=== PATIENT | female | born 1985 | race Caucasian/White ===

== ENCOUNTER 2019-10-31 11:43 | Emergency (ER) | payer OTHER, SELFPAY ==
[2019-10-31 11:46] VITALS: BP 137/86; PULSE 81; RESP 16; TEMP 36.2; O2SAT 100; BMI 36.1
--- NOTE | 2019-10-31 11:57 | DI.CT.S_ITS ---
PROCEDURE: CT HEAD/BRAIN WO CON INDICATIONS: fall off running horse, poss brief LOC TECHNIQUE: Noncontrast 4.5 mm thick angled axial sections acquired from the foramen magnum to the vertex, with coronal and sagittal reformats. For radiation dose reduction, the following was used: automated exposure control, adjustment of mA and/or kV according to patient size. COMPARISON: None. FINDINGS: Image quality: Excellent. CSF spaces: Basal cisterns are patent. No extra-axial fluid collections. Ventricles are normal in size and shape. Mild thickening of the anterior midline falx is identified. Brain: No midline shift. No intracranial masses or hemorrhage. Alcantar-white matter interface is normal. Skull and face: Calvarium and visualized facial bones are intact, without suspicious lesions. Sinuses: Visualized sinuses and mastoids are clear. IMPRESSION: No definitive acute intracranial hemorrhage is identified. Thickening of the anterior midline falx may be a congenital variant. The possibility of a small subdural hematoma along the anterior midline falx cannot be excluded. The need for follow up imaging should be based on clinical grounds. Dictated by: Curry Talbert M.D. on 10/31/2019 at 11:56 Approved by: Curry Talbert M.D. on 10/31/2019 at 11:58
--- NOTE | 2019-10-31 11:57 | DI.CT.S_ITS ---
PROCEDURE: CT CERVICAL SPINE WO CON INDICATIONS: fall off running horse, poss brief LOC TECHNIQUE: Noncontrast 3 mm thick sections acquired from the skull base to the T4 level. Sagittal and coronal reformats were then constructed. For radiation dose reduction, the following was used: automated exposure control, adjustment of mA and/or kV according to patient size. COMPARISON: None. FINDINGS: Image quality: Diagnostic. Bones: The craniocervical and atlantoaxial joints are well-maintained. The odontoid is intact. The vertebral body heights and prevertebral soft tissues are within normal limits throughout the cervical spine without evidence to suggest acute compression fracture. No other fractures are evident within the cervical spine. The bone mineralization is within normal limits. Mild degenerative changes of the cervical spine are evident. There is mild reversal of the normal cervical lordosis. No spondylolisthesis is identified. Soft tissues: No prevertebral soft tissue swelling. The imaged lung apices are clear. Imaged portions of the mediastinum are unremarkable. Otherwise, the remainder of the imaged soft tissues of the neck are within normal limits. IMPRESSION: 1. No acute fracture of the cervical spine. 2. Mild degenerative changes of the cervical spine. 3. Mild reversal of normal cervical lordosis probably is related to muscle spasm. Dictated by: Curry Talbert M.D. on 10/31/2019 at 11:52 Approved by: Curry Talbert M.D. on 10/31/2019 at 11:55
--- NOTE | 2019-10-31 11:57 | DI.RAD.S_ITS ---
PROCEDURE: XR THORACIC SPINE 3V INDICATIONS: fall off running horse, poss brief LOC TECHNIQUE: 3 views of the thoracic spine were acquired. COMPARISON: None. FINDINGS: Bones: On the lateral views, the cervicothoracic junction is not adequately identified. On the lateral view, the thoracic spine is only adequately visualized to approximately the T4 level. The swimmer's view is essentially nondiagnostic. However, this portion of the upper thoracic spine wasn't well-visualized on the CT of the cervical spine without an associated fracture within this region. 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 The vertebral body heights are within normal limits throughout the thoracic spine without evidence to suggest acute compression fracture. The bone mineralization is within normal limits. Mild degenerative changes of the thoracic spine are evident. Soft tissues: The imaged overlying soft tissues of the chest are within normal limits. IMPRESSION: 1. No acute fracture of the thoracic spine. 2. Mild degenerative changes of the lower thoracic spine. Dictated by: Curry Talbert M.D. on 10/31/2019 at 12:05 Approved by: Curry Talbert M.D. on 10/31/2019 at 12:07
--- NOTE | 2019-10-31 11:57 | DI.RAD.S_ITS ---
PROCEDURE: XR RIBS BI MIN 4V W CXR1V INDICATIONS: fall off running horse, left rib/chest pain TECHNIQUE: 2 views of the right RIBS, 2 views of the left ribs, and a single frontal view of the chest was obtained. COMPARISON: None. FINDINGS: Surgical changes and devices: No acute osseous abnormality of the Bones and chest wall: No fractures or dislocations. No suspicious bony lesions. Overlying soft tissues appear unremarkable. Lungs and pleura: No pleural effusions or pneumothorax. Lungs appear clear. Mediastinum: Mediastinal contours appear normal. Heart size is normal. IMPRESSION: No displaced rib fractures. Dictated by: Curry Talbert M.D. on 10/31/2019 at 12:08 Approved by: Curry Talbert M.D. on 10/31/2019 at 12:09
--- NOTE | 2019-10-31 12:09 | DI.RAD.S_ITS ---
PROCEDURE: XR HAND RT MIN 3V INDICATIONS: fall off running horse, c/o R 5th finger pain TECHNIQUE: 3 00 views of the hand(s) acquired. COMPARISON: None. FINDINGS: Bones: No fractures or dislocations. Carpal bones are normally aligned. No suspicious bony lesions. Soft tissues: No suspicious soft tissue calcifications. IMPRESSION: No acute osseous abnormality of the right hand. Dictated by: Curry Talbert M.D. on 10/31/2019 at 12:34 Approved by: Curry Talbert M.D. on 10/31/2019 at 12:35
[2019-10-31 12:17] LABS: Add Manual Diff / Slide Review NO; Basophils Absolute Auto 0 /uL (0-100); Basophils Percent Auto 0.3 % (0-2); Eosinophils Absolute Auto 0 /uL (0-450); Eosinophils Percent Auto 0.4 % (2-4); Hematocrit 40.4 % (36-46); Hemoglobin 13.1 g/dL (12.0-16.0); Lymphocytes Absolute Auto 1400 /uL (1100-4500); Lymphocytes Percent Auto 13.7 % (25-40); Mean Corpuscular HGB Conc 32.3 % (30-36); Mean Corpuscular Hemoglobin 24.9 PG (26-34); Monocytes Absolute Auto 600 /uL (0-900); Monocytes Percent Auto 5.5 % (3-14); Neutrophils Absolute Auto 8400 /uL (1500-7000); Neutrophils Percent Auto 80.1 % (50-75); Platelet Count 209 X10^3/uL (150-400); Red Blood Cell Count 5.25 X10^6/uL (4.0-5.2); Red Cell Distribution Width 17.4 % (11.6-14.8); White Blood Cell Count 10.5 X10^3/uL (4.5-11.0)
[2019-10-31 12:27] LABS: Alanine Aminotransferase 15 IU/L (<35); Albumin 4.6 g/dL (3.5-5.0); Albumin Globulin Ratio 1.4 (1.0-2.8); Alkaline Phosphatase 89 U/L (38-126); Aspartate Aminotransferase 25 IU/L (14-36); BUN Creatinine Ratio 16.8 (6-22); Bilirubin Total 0.6 mg/dL (0.2-1.3); Blood Urea Nitrogen 17 mg/dL (7-17); Calcium 9.6 mg/dL (8.4-10.2); Carbon Dioxide 22 mmol/L (22-32); Chloride 108 mmol/L (98-107); Estimated Glomerular Filt Rate > 60.0 mL/min (>60); Globulin 3.4 g/dL (1.7-4.1); Glucose 98 mg/dL (70-100); HEMOLYSIS < 15 (0-50); Sodium 139 mmol/L (137-145)
[2019-10-31 13:16] VITALS: BP 115/62; PULSE 73; O2SAT 100
[2019-10-31] MEDS: ACETAMINOPHEN 325 MG TABLET 650 MG PO (13:59)
[2019-10-31 15:23] VITALS: BP 122/77; PULSE 83; O2SAT 100
[2019-10-31] MEDS: LIDOCAINE PATCH 1 EACH ADH..PATCH TOP (15:45)
[2019-10-31] MEDS: MORPHINE 4 MG/ML INJ IV (15:45)
[2019-10-31] MEDS: CYCLOBENZAPRINE 10 MG TABLET PO (15:46)
--- NOTE | 2019-10-31 16:33 | DI.RAD.S_ITS ---
PROCEDURE: XR SHOULDER LT MIN 2V INDICATIONS: fell off a horse and landed on left shoulder, pain TECHNIQUE: 3 views of the shoulder were acquired. COMPARISON: None. FINDINGS: Bones: No fractures or dislocations. No suspicious bony lesions. Visualized ribs appear intact. Soft tissues: No suspicious soft tissue calcifications. IMPRESSION: 1. No fracture or subluxation. Dictated by: Carlos Gant M.D. on 10/31/2019 at 18:22 Approved by: Carlos Gant M.D. on 10/31/2019 at 18:24
[2019-10-31 17:02] VITALS: BP 116/60; PULSE 67; O2SAT 100
[2019-10-31 17:50] VITALS: BP 114/62; PULSE 65; O2SAT 100
--- NOTE | 2019-10-31 17:55 | DI.CT.S_ITS ---
PROCEDURE: CT HEAD/BRAIN WO CON INDICATIONS: repeat head CT, initial reading possible small subdural hematoma status post trauma TECHNIQUE: Noncontrast 4.5 mm thick angled axial sections acquired from the foramen magnum to the vertex, with coronal and sagittal reformats. For radiation dose reduction, the following was used: automated exposure control, adjustment of mA and/or kV according to patient size. COMPARISON: [facility], CT, CT HEAD/BRAIN WO CON, 10/31/2019, 12:18. FINDINGS: Image quality: Excellent. CSF spaces: Basal cisterns are patent. No extra-axial fluid collections. The falx appears unchanged. Ventricles are normal in size and shape. Brain: No intracranial hemorrhage, mass, or mass effect. Alcantar-white matter interface is preserved. Skull and face: Calvarium and visualized facial bones are intact, without suspicious lesions. Sinuses: Visualized sinuses and mastoids are clear. IMPRESSION: 1. No acute intracranial abnormality. Dictated by: Carlos Gant M.D. on 10/31/2019 at 18:17 Approved by: Carlos Gant M.D. on 10/31/2019 at 18:21
[2019-10-31 18:34] LABS: Hematocrit 39.3 % (36-46)
[2019-10-31] MEDS: KETOROLAC 60 MG/2 ML VIAL 30 MG IV (19:41)
[2019-10-31] MEDS: CYCLOBENZAPRINE 10 MG PREPACK 1 BOTTLE MISC (19:42)
[2019-10-31] MEDS: HYDROCODONE/ACET 5/325 PREPACK 1 BOTTLE MISC (19:42)
[2019-10-31 19:47] VITALS: BP 129/75; PULSE 74; RESP 18; O2SAT 100
--- NOTE | 2019-10-31 22:10 | ED.TRAUMA ---
HPI - Trauma <PILAR Pimentel - Last Filed: 11/01/19 01:21> General Chief Complaint: Trauma Stated Complaint: fell off horse, rt shoulder pain Time Seen by Provider: 10/31/19 11:50 Source: patient and EMS Mode of arrival: EMS Limitations: no limitations History of Present Illness HPI narrative: This is a 33 year female, nonsmoker, who presents to ED with [place] medics with C-spine precaution and backboard after she fell off a horse that she was riding at 42 mph while helmeted when friend's dog jumped and bite the horse's chest and startled the horse. Patient reports she landed on her left shoulder which was dislocated at that time and left side lateral ribs. Patient denies losing consciousness but felt she was in daze. Patient reports posterior head discomfort and bilateral neck discomfort from the fall. Patient states she has history of frequent left shoulder dislocation and her friend who is a physician reduced her shoulder at the scene. Patient denies tingling, numbness, weakness to left arm. She reports intact sensation and is able to move her fingers. Patient also reports right 5th finger discomfort. Patient is not currently taking anticoagulant/antiplatelets. Patient denies abdominal pain, chest pain, breathing difficulty, weakness to lower extremities, back pain. Related Data Home Medications Medication Instructions Recorded Confirmed albuterol sulfate [Ventolin HFA] 2 puff INH #0 10/08/17 beclomethasone dipropionate [Qvar] #0 10/08/17 Previous Rx's Medication Instructions Recorded cyclobenzaprine 10 mg PO BEDTIME PRN #10 tab 10/31/19 hydrocodone-acetaminophen [[place]] 1 tab PO TID PRN #10 tab 10/31/19 lidocaine 1 patch TOP DAILY #30 each 10/31/19 Allergies Allergy/AdvReac Type Severity Reaction Status Date / Time Fish Containing Products Allergy Anaphylaxis Verified 10/31/19 11:46 iodine Allergy Anaphylaxis Verified 10/31/19 11:46 sesame seed Allergy Anaphylaxis Verified 10/31/19 11:46 Sulfa (Sulfonamide Allergy Anaphylaxis Verified 10/31/19 11:46 Antibiotics) tree nut Allergy Anaphylaxis Verified 10/31/19 11:46 Review of Systems <PILAR Pimentel Last Filed: 11/01/19 01:21> Review of Systems Narrative: General: Denies fever, chills, fatigue, malaise, sweats. HEENT: Denies sinus pain, ear pain, sore throat, difficulty swallowing, dizziness. Respiratory: Denies dyspnea, cough, wheezing, hemoptysis, sputum. Cardiovascular: Denies chest pain, palpitations, orthopnea, edema. Gastrointestinal: Denies nausea, vomiting, abdominal pain, diarrhea, constipation, melena. : Denies dysuria, frequency, incontinence, hematuria, urinary retention. Musculoskeletal: See HPI Skin: Denies rash, skin lesions, or other. Neurologic: See HPI Psychiatric: No concerning psychosocial issues. 12-point review of systems is negative except for those stated above. Patient History <PILAR Pimentel - Last Filed: 11/01/19 01:21> Medical History (Updated 10/31/19 @ 19:33 by PILAR Pimentel) Anemia (Chronic) Asthma (Chronic ~2006) Chicken pox (Resolved ~1998) Infertility (Chronic) Post traumatic stress disorder (PTSD) (Chronic ~2000) Surgical procedure planned (Resolved ~1993) Family History (Updated 11/17/17 @ 16:14 by Antionette Mccormack) Father Hypertension Skin cancer Mother Diabetes mellitus Mental health problem Grandfather Diabetes mellitus Stroke Exam <PILAR Pimentel - Last Filed: 11/01/19 01:21> Narrative Exam Narrative: GEN: Alert, oriented x 3, well appearing and nourished, and in no acute distress. Head: Normal cephalic, atraumatic. No scalp or temporal tenderness, palpable mass or rash. EYES: Pupils are equal, round, and reactive to light and accommodation. Extraocular muscles are intact bilaterally. There is no subconjunctival hemorrhage, exudate and sclera non-icteric. ENT: No otorrhea or rhinorrea noted. Hearing grossly intact. Nose without bleeding, purulent discharge or deviation. Facial sinuses nontender to palpate. Mucous membrane moist, no mucosal lesion. Throat without erythema, tonsillar hypertrophy or exudate. Uvula in midline, airway patent. Neck: Trachea in midline. No JVD, non-tender without lymphadenopathy. No masses or thyroid megaly. Supple, no step-offs, tenderness to palpate in lower c spine. Bilateral paraspine and muscular spasm. CARDIAC: Normal regular rate and rhythm without murmurs, gallops, or rubs. No chest wall tenderness. Reports left-sided lateral rib pain. No peripheral edema, cyanosis or pallor. Capillary refill is less than 2 seconds. RESPIRATORY: Lungs are clear to auscultate bilaterally. No cough, wheezes, rales, or rhonchi. No stridor, respiratory distress, increase work of breathing, or accessary muscle used. ABD: Abdomen soft, nontender and non-distended. No guarding or rebound tenderness to palpate. Bowel sounds are normal in all 4 quadrants. There is no palpable masses or organomegaly. SKIN: Warm, dry, normal color for patient. No erythema, lesions or rash over visible areas. NEUROLOGICAL: Alert and oriented to place, time and person. Sensation and motor function intact bilaterally. No facial droops, dysphasia. PSYCHIATRIC: Good judgement and reason, without hallucinations, abnormal affect or abnormal behaviors during the examination. Initial Vital Signs Initial Vital Signs: Vital Signs Temperature 97.1 F L 10/31/19 11:46 Pulse Rate 81 10/31/19 11:46 Respiratory Rate 16 10/31/19 11:46 Blood Pressure 137/86 10/31/19 11:46 Pulse Oximetry 100 10/31/19 11:46 Back/Spine/Pelvis Back: normal to inspection, No crepitance, No CVA tenderness, No ecchymosis, No erythema, No Alcantar-Fuentes sign present and No mass Cervical Spine: collar present, cervical muscular tenderness, cervical spasm and No step off deformity Thoracic/Lumbar Spine: thoracic and lumbar spine normal to inspection, straight leg raise negative bilaterally, No thoracic spinal tenderness and No lumbar spinal tenderness Sacroiliac Joints: nontender Sacrum: no tenderness Extrem Right upper extremity: normal to inspection, wrist Details: normal to inspection and normal ROM; no tenderness and no swelling and hand Details: neurosensory exam normal, tendon exam normal, tenderness Location: of the 5th digit, vascular exam Details: radial pulse present and normal capillary refill, abnormal ROM of finger Details: pain with active ROM Location: of the 5th digit and pain with passive ROM Location: of the 5th digit, swelling Location: of the 5th digit and ecchymosis Location: of the 5th digit Left upper extremity: shoulder/upper arm Details: inspection abnormal, tenderness (Posterior shoulder) and abnormal ROM Details: pain with active ROM and pain with passive ROM; no swelling, elbow/forearm Details: normal to inspection and normal ROM; no tenderness and no swelling, wrist Details: normal to inspection and normal ROM; no tenderness and no swelling and hand Details: normal to inspection, neuromotor exam normal, neurosensory exam normal, vascular exam Details: radial pulse present and normal ROM of fingers; no tenderness Right lower extremity: normal to inspection and full ROM Left lower extremity: normal to inspection and full ROM <Max Yap DO - Last Filed: 11/01/19 07:35> Initial Vital Signs Initial Vital Signs: Vital Signs Temperature 97.1 F L 10/31/19 11:46 Pulse Rate 81 10/31/19 11:46 Respiratory Rate 16 10/31/19 11:46 Blood Pressure 137/86 10/31/19 11:46 Pulse Oximetry 100 10/31/19 11:46 Procedures <PILAR Pimentel Last Filed: 11/01/19 01:21> Orthopedic Splinting/Casting Injury #1: Side: right Upper Extremity Injury Location: finger (Fifth) Upper Extremity Immobilizer: aluminum form splint Post splinting neuro exam: intact Post splinting vascular exam: intact Placed by: Nursing Injury #2: Side: left Upper Extremity Injury Location: shoulder Upper Extremity Immobilizer: sling/shoulder immobilizer Post splinting neuro exam: intact Post splinting vascular exam: intact Placed by: Nursing Scores <[facility] Last Filed: 11/01/19 01:21> GCS [place] coma scale eye opening: Spontaneous [place] coma scale verbal response: Orientated Chung coma scale motor response: [place]bey commands Chung coma scale total score: 15 Nexus Score for C-Spine Focal Neurologic deficit present: No Midline spinal tenderness present: Yes Altered level of conciousness present: No Intoxication present: No Distracting Injury Present: Yes Nexus Criteria for C-spine: 2 Course <PIALR Pimentel Last Filed: 11/01/19 01:21> Orders Ordered: Discontinued Medications Acetaminophen (Tylenol) 650 mg PO NOW ONE Stop: 10/31/19 13:49 Last Admin: 10/31/19 13:59 Dose: 650 mg Documented by: ENDY Hydrocodone Bitart/Acetaminophen (Vicodin 5/325 Prepack) 1 bottle MISC SEEINSTR ONE Stop: 10/31/19 19:26 Last Admin: 10/31/19 19:42 Dose: 1 bottle Documented by: KASANDRA Cyclobenzaprine HCl (Flexeril) 10 mg PO NOW ONE Stop: 10/31/19 15:38 Last Admin: 10/31/19 15:46 Dose: 10 mg Documented by: ENDY Cyclobenzaprine HCl (Flexeril 10 Mg Prepack) 1 bottle MISC SEEINSTR ONE Stop: 10/31/19 19:28 Last Admin: 10/31/19 19:42 Dose: 1 bottle Documented by: KASANDRA Ketorolac Tromethamine (Toradol) 30 mg IV NOW ONE Stop: 10/31/19 19:26 Last Admin: 10/31/19 19:41 Dose: 30 mg Documented by: KASANDRA Lidocaine (Lidoderm) 1 each TOP NOW ONE Stop: 10/31/19 15:38 Last Admin: 10/31/19 15:45 Dose: 1 each Documented by: ENDY Morphine Sulfate (Morphine) 4 mg IV NOW ONE Stop: 10/31/19 15:38 Last Admin: 10/31/19 15:45 Dose: 4 mg Documented by: ENDY Vital Signs Vital signs: Vital Signs - 8 hr 10/31/19 17:50 10/31/19 19:47 Pulse Rate 65 74 Respiratory Rate 18 Blood Pressure [Right Arm] 114/62 129/75 Pulse Oximetry 100 100 <Max Yap DO - Last Filed: 11/01/19 07:35> Orders Ordered: Discontinued Medications Acetaminophen (Tylenol) 650 mg PO NOW ONE Stop: 10/31/19 13:49 Last Admin: 10/31/19 13:59 Dose: 650 mg Documented by: ENDY Hydrocodone Bitart/Acetaminophen (Vicodin 5/325 Prepack) 1 bottle MISC SEEINSTR ONE Stop: 10/31/19 19:26 Last Admin: 10/31/19 19:42 Dose: 1 bottle Documented by: KASANDRA Cyclobenzaprine HCl (Flexeril) 10 mg PO NOW ONE Stop: 10/31/19 15:38 Last Admin: 10/31/19 15:46 Dose: 10 mg Documented by: ENDY Cyclobenzaprine HCl (Flexeril 10 Mg Prepack) 1 bottle MISC SEEINSTR ONE Stop: 10/31/19 19:28 Last Admin: 10/31/19 19:42 Dose: 1 bottle Documented by: KASANDRA Ketorolac Tromethamine (Toradol) 30 mg IV NOW ONE Stop: 10/31/19 19:26 Last Admin: 10/31/19 19:41 Dose: 30 mg Documented by: KASANDRA Lidocaine (Lidoderm) 1 each TOP NOW ONE Stop: 10/31/19 15:38 Last Admin: 10/31/19 15:45 Dose: 1 each Documented by: ENDY Morphine Sulfate (Morphine) 4 mg IV NOW ONE Stop: 10/31/19 15:38 Last Admin: 10/31/19 15:45 Dose: 4 mg Documented by: ENDY Vital Signs Vital signs: Vital Signs - 8 hr 10/31/19 17:50 10/31/19 19:47 Pulse Rate 65 74 Respiratory Rate 18 Blood Pressure [Right Arm] 114/62 129/75 Pulse Oximetry 100 100 MDM - Trauma <Kwadwo PILAR Rodas - Last Filed: 11/01/19 01:21> Differential Diagnosis Differential diagnosis: Likely other (Intracranial hemorrhage, C-spine fracture, shoulder dislocation/fracture/sprain, finger sprain/fracture) Medical Records Attestation: I reviewed the patient's medical records. Lab Data Attestation: I reviewed the patient's lab results. Result diagrams: 10/31/19 18:23 10/31/19 12:07 Labs: Lab Results 10/31/19 10/31/19 10/31/19 Range/Units 12:07 12:07 18:23 WBC 10.5 (4.5-11.0) X10^3/uL RBC 5.25 H (4.0-5.2) X10^6/uL Hgb 13.1 13.0 (12.0-16.0) g/dL Hct 40.4 39.3 (36-46) % MCV 77.0 L (80-100) fL MCH 24.9 L (26-34) PG MCHC 32.3 (30-36) % RDW 17.4 H (11.6-14.8) % Plt Count 209 (150-400) X10^3/uL Neut % (Auto) 80.1 H (50-75) % Lymph % (Auto) 13.7 L (25-40) % [place] % (Auto) 5.5 (3-14) % Eos % (Auto) 0.4 L (2-4) % Baso % (Auto) 0.3 (0-2) % Neut # (Auto) 8400 H (1108-8851) /uL Lymph # (Auto) 1400 (6992-0421) /uL Baldwin # (Auto) 600 (0-900) /uL Eos # (Auto) 0 (0-450) /uL Baso # (Auto) 0 (0-100) /uL Sodium 139 (137-145) mmol/L Potassium 4.0 (3.4-5.1) mmol/L Chloride 108 H (98-107) mmol/L Carbon Dioxide 22 (22-32) mmol/L BUN 17 (7-17) mg/dL Creatinine 1.01 (0.52-1.04) mg/dL Estimated GFR > 60.0 (>60) mL/min BUN/Creatinine Ratio 16.8 (6-22) Glucose 98 (70-100) mg/dL Calcium 9.6 (8.4-10.2) mg/dL Total Bilirubin 0.6 (0.2-1.3) mg/dL AST 25 (14-36) IU/L ALT 15 (<35) IU/L Alkaline Phosphatase 89 (38-126) U/L Total Protein 8.0 (6.3-8.2) g/dL Albumin 4.6 (3.5-5.0) g/dL Globulin 3.4 (1.7-4.1) g/dL Albumin/Globulin Ratio 1.4 (1.0-2.8) Point of Care Testing Test Results Negative Urine Dip Bedside Urine Glucose Negative Bedside Urine Bilirubin - Negative Bedside Urine Ketone + 15 Urine Specific [place] 1.015 Bedside Urine Occult Blood +++ Bedside Urine pH 8.0 Bedside Urine Protein - Negative Bedside Urine Urobilinogen - Negative Bedside Urine Nitrite - Negative Bedside Urine Leukocytes + [address] scan - head: Radiologist's Impression: [address] [address] [address] Scan Report Signed Patient: Derrell Krishna#: [id number] : 1985Acct:[id number] Age/Sex: 33 / FDate of Service: 10/31/19 Loc: ED Accession Number: [id number] Procedure: CT head/brain wo con Ordering Provider: Kwadwo Rodas [facility] PROCEDURE: CT HEAD/BRAIN WO CON INDICATIONS: fall off running horse, poss brief LOC TECHNIQUE: Noncontrast 4.5 mm thick angled axial sections acquired from the foramen magnum to the vertex, with coronal and sagittal reformats. For radiation dose reduction, the following was used: automated exposure control, adjustment of mA and/or kV according to patient size. COMPARISON: None. FINDINGS: Image quality: Excellent. CSF spaces: Basal cisterns are patent. No extra-axial fluid collections. Ventricles are normal in size and shape. Mild thickening of the anterior midline falx is identified. Brain: No midline shift. No intracranial masses or hemorrhage. Aclantar-white matter interface is normal. Skull and face: Calvarium and visualized facial bones are intact, without suspicious lesions. Sinuses: Visualized sinuses and mastoids are clear. IMPRESSION: No definitive acute intracranial hemorrhage is identified. Thickening of the anterior midline falx may be a congenital variant. The possibility of a small subdural hematoma along the anterior midline falx cannot be excluded. The need for follow up imaging should be based on clinical grounds. Dictated by: Curry Talbert M.D. on 10/31/2019 at 11:56 Approved by: Curry Talbert M.D. on 10/31/2019 at 11:58 CT - cervical spine: Radiologist's Impression: [place] [address] CT Scan Report Signed Patient: Mariya Krishna#: [id number] : 1985Acct:[id number] Age/Sex: 33 / FDate of Service: 10/31/19 Loc: ED Accession Number: [id number] Procedure: CT cervical spine wo con Ordering Provider: Kwadwo Rodas [facility] PROCEDURE: CT CERVICAL SPINE WO CON INDICATIONS: fall off running horse, poss brief LOC TECHNIQUE: Noncontrast 3 mm thick sections acquired from the skull base to the T4 level. Sagittal and coronal reformats were then constructed. For radiation dose reduction, the following was used: automated exposure control, adjustment of mA and/or kV according to patient size. COMPARISON: None. FINDINGS: Image quality: Diagnostic. Bones: The craniocervical and atlantoaxial joints are well-maintained. The odontoid is intact. The vertebral body heights and prevertebral soft tissues are within normal limits throughout the cervical spine without evidence to suggest acute compression fracture. No other fractures are evident within the cervical spine. The bone mineralization is within normal limits. Mild degenerative changes of the cervical spine are evident. There is mild reversal of the normal cervical lordosis. No spondylolisthesis is identified. Soft tissues: No prevertebral soft tissue swelling. The imaged lung apices are clear. Imaged portions of the mediastinum are unremarkable. Otherwise, the remainder of the imaged soft tissues of the neck are within normal limits. IMPRESSION: 1. No acute fracture of the cervical spine. 2. Mild degenerative changes of the cervical spine. 3. Mild reversal of normal cervical lordosis probably is related to muscle spasm. Dictated by: Curry Talbert M.D. on 10/31/2019 at 11:52 Approved by: Curry Talbert M.D. on 10/31/2019 at 11:55 XR-Chest and Rib: Radiologist's Impression: [place] [address] XRay Report Signed Patient: Mariya Krishna#: [id number] : 1985Acct:[id number] Age/Sex: 33 / FDate of Service: 10/31/19 Loc: ED Accession Number: [id number] Procedure: XR ribs BI min 4V w CXR1V Ordering Provider: Kwadwo Rodas [employer] PROCEDURE: XR RIBS BI MIN 4V W CXR1V INDICATIONS: fall off running horse, left rib/chest pain TECHNIQUE: 2 views of the right RIBS, 2 views of the left ribs, and a single frontal view of the chest was obtained. COMPARISON: None. FINDINGS: Surgical changes and devices: No acute osseous abnormality of the Bones and chest wall: No fractures or dislocations. No suspicious bony lesions. Overlying soft tissues appear unremarkable. Lungs and pleura: No pleural effusions or pneumothorax. Lungs appear clear. Mediastinum: Mediastinal contours appear normal. Heart size is normal. IMPRESSION: No displaced rib fractures. Dictated by: Curry Talbert M.D. on 10/31/2019 at 12:08 Approved by: Curry Talbert M.D. on 10/31/2019 at 12:09 XR-Thoracic: Radiologist's Impression: [address] [address] XRay Report Signed Patient: Mariya Krishna#: [id number] : 1985Acct:[id number] Age/Sex: 33 / FDate of Service: 10/31/19 Loc: ED Accession Number: [id number] Procedure: XR thoracic spine 3V Ordering Provider: Kwadwo Rodas PROCEDURE: XR THORACIC SPINE 3V INDICATIONS: fall off running horse, poss brief LOC TECHNIQUE: 3 views of the thoracic spine were acquired. COMPARISON: None. FINDINGS: Bones: On the lateral views, the cervicothoracic junction is not adequately identified. On the lateral view, the thoracic spine is only adequately visualized to approximately the T4 level. The swimmer's view is essentially nondiagnostic. However, this portion of the upper thoracic spine wasn't well-visualized on the CT of the cervical spine without an associated fracture within this region. 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 The vertebral body heights are within normal limits throughout the thoracic spine without evidence to suggest acute compression fracture. The bone mineralization is within normal limits. Mild degenerative changes of the thoracic spine are evident. Soft tissues: The imaged overlying soft tissues of the chest are within normal limits. IMPRESSION: 1. No acute fracture of the thoracic spine. 2. Mild degenerative changes of the lower thoracic spine. Dictated by: Curry Talbert M.D. on 10/31/2019 at 12:05 Approved by: Curry Talbert M.D. on 10/31/2019 at 12:07 XR-Hand RT: Radiologist's Impression: [address] [address] XRay Report Signed Patient: Mariya Krishna#: [id number] : 1985Acct:[id number] Age/Sex: 33 / FDate of Service: 10/31/19 Loc: ED Accession Number: [id number] Procedure: XR hand RT min 3V Ordering Provider: Bettencourt-Oras,Kwadwo [employer] PROCEDURE: XR HAND RT MIN 3V INDICATIONS: fall off running horse, c/o R 5th finger pain TECHNIQUE: 3 00 views of the hand(s) acquired. COMPARISON: None. FINDINGS: Bones: No fractures or dislocations. Carpal bones are normally aligned. No suspicious bony lesions. Soft tissues: No suspicious soft tissue calcifications. IMPRESSION: No acute osseous abnormality of the right hand. Dictated by: Curry aTlbert M.D. on 10/31/2019 at 12:34 Approved by: Curry Talbert M.D. on 10/31/2019 at 12:35 XR-Shoulder LT: Radiologist's Impression: [address] [address] XRay Report Signed Patient: Wendy Krishnacarmen#: [id number] : 1985Acct:[id number] Age/Sex: 33 / FDate of Service: 10/31/19 Loc: ED Accession Number: [id number] Procedure: XR shoulder LT min 2V Ordering Provider: Kwadwo RodasP PROCEDURE: XR SHOULDER LT MIN 2V INDICATIONS: fell off a horse and landed on left shoulder, pain TECHNIQUE: 3 views of the shoulder were acquired. COMPARISON: None. FINDINGS: Bones: No fractures or dislocations. No suspicious bony lesions. Visualized ribs appear intact. Soft tissues: No suspicious soft tissue calcifications. IMPRESSION: 1. No fracture or subluxation. Dictated by: Carlos Gant M.D. on 10/31/2019 at 18:22 Approved by: Carlos Gant M.D. on 10/31/2019 at 18:24 CT- 2nd Head CT: Radiologist's Impression: [address] [address] [address] Scan Report Signed Patient: Wendy Krishnacarmen#: [id number] : 1985Acct:[id number] Age/Sex: 33 / FDate of Service: 10/31/19 Loc: ED Accession Number: [id number] Procedure: CT head/brain wo con Ordering Provider: Kwadwo RodasP PROCEDURE: CT HEAD/BRAIN WO CON INDICATIONS: repeat head CT, initial reading possible small subdural hematoma status post trauma TECHNIQUE: Noncontrast 4.5 mm thick angled axial sections acquired from the foramen magnum to the vertex, with coronal and sagittal reformats. For radiation dose reduction, the following was used: automated exposure control, adjustment of mA and/or kV according to patient size. COMPARISON: [facility], CT, CT HEAD/BRAIN WO CON, 10/31/2019, 12:18. FINDINGS: Image quality: Excellent. CSF spaces: Basal cisterns are patent. No extra-axial fluid collections. The falx appears unchanged. Ventricles are normal in size and shape. Brain: No intracranial hemorrhage, mass, or mass effect. Alcantar-white matter interface is preserved. Skull and face: Calvarium and visualized facial bones are intact, without suspicious lesions. Sinuses: Visualized sinuses and mastoids are clear. IMPRESSION: 1. No acute intracranial abnormality. Dictated by: Carlos Gant M.D. on 10/31/2019 at 18:17 Approved by: Carlos Gant M.D. on 10/31/2019 at 18:21 MDM Narrative Medical decision making narrative: This is a 33 year female who presents to ED with C-spine precaution backboard after she fell of horse she was riding at high speed while helmeted from [facility]. No focal deficit neurological exam with no loss of consciousness. Patient had posterior head and lower C-spine tenderness to palpate. Initial CT test of head indicates no definite acute intracranial hemorrhage with possibility of a small subdural hematoma along the anterior midline falx without acute fracture of cervical spine but mild degenerative changes in cervical spine. There was a mild reversal of normal cervical lordosis which is probably related to muscle spasm. Patient complain of left side and rib pain where she landed from a fall. X-ray test for chest and ribs shows no acute findings with normal heart size and mediastinal contour. Thoracic x-ray does not show acute findings however there was mild degenerative changes in lower thoracic spine. Right 5th finger with mild ecchymosis and swelling but x-ray test does not show acute findings such as dislocations or fractures. Patient reports her friend at the scene has reduced her left shoulder from a dislocation and x-ray test does not show fractures or subluxation. C spine stabilizer with thick rolled up blanket (due to short neck) was removed and the patient was able flex, extend and rotate her neck w/o difficulty without neuro/sensation deficit in upper extremities. Patient was able to ambulate several steps to use restroom but reports dizziness. Blood test shows stable H&H of 13.1/40.4. Unremarkable CMP with normal liver function tests, kidney function test, electrolytes. Urine test was negative. POC urine test shows small amount of urine leukocyte esterase with +++ occult blood. Considered kidney injury, but patient denies flank pain, ecchymosis, abdominal pain or Patel Fuentes's signs appreciate. Initially patient declined when pain medication was offered when she arrived. However, after the testings patient reports increasing pain on her shoulder and generalized muscular aches. Patient was medicated with Tylenol, small dose of morphine, Flexeril with lidocaine patch on left shoulder. Patient was able to rest and reports pain improved. He was decided to repeated head CT test post 6 hour due to initial abnormal findings. Discussed plan of care with patient and significant other on this. Patient agrees with the plan. The patient was evaluated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
== END 2019-10-31 20:12 | disposition home or self-care (01) ==
PROVIDERS: Emergency Provider Nurse Practitioner Family; PCP Family Medicine
DX: S49.92XA Unspecified injury of left shoulder and upper arm, initial encounter (principal); S09.90XA Unspecified injury of head, initial encounter; S20.222A Contusion of left back wall of thorax, initial encounter; R07.81 Pleurodynia; R42 Dizziness and giddiness; M79.644 Pain in right finger(s); R07.89 Other chest pain; V80.010A Animal-rider injured by fall from or being thrown from horse in noncollision accident, initial encounter
CPT/HCPCS: 29125; 36415; 70450; 71111; 72072; 72125; 73030; 73130; 80053; 81003; 81025; 85014; 85018; 85025; 96374; 96375; 99285; J1885; J2270

== ENCOUNTER → 2019-11-11 17:44 | Outpatient (CLI) | payer OTHER, SELFPAY ==
--- NOTE | 2019-11-11 | DI.MRI.S_ITS ---
PROCEDURE: MR SHOULDER LT WO CON INDICATIONS: Left shoulder dislocation TECHNIQUE: Noncontrast oblique coronal T2 fast spin echo with fat saturation, oblique sagittal T1 spin echo and T2 fast spin echo with fat saturation, axial T1 spin echo and T2 fast spin echo with fat saturation through the shoulder. COMPARISON: [facility], CR, XR SHOULDER LT MIN 2V, 10/31/2019, 18:04. FINDINGS: Image quality: Excellent. Rotator cuff: The supraspinatus, infraspinatus, subscapularis, and teres minor tendons appear intact. Sagittal images demonstrate no fatty muscle atrophy. Bones and bursae: No bone marrow contusions or fractures. No definite Hill-Sachs or bony [place] lesions. The acromioclavicular joint appears congruent with minimal acromioclavicular joint degeneration. The acromion demonstrates conventional anatomy, without an os acromiale. Minimal subacromial-subdeltoid bursal fluid is present. Capsule and soft tissues: In the absence of intra-articular contrast, the labrum and glenohumeral ligaments appear intact. The long head of the biceps tendon demonstrates normal location and morphology. The rotator interval appears normal, without fibrosis. The coracohumeral ligament is normal in thickness. IMPRESSION: 1. No definite Hill-Sachs or bony Bankhart lesions. 2. No discrete labral tear identified. 3. Minimal acromioclavicular joint degeneration without subluxation. 4. Minimal subacromial/subdeltoid bursal fluid. Dictated by: Carlos Gant M.D. on 11/12/2019 at 13:26 Approved by: Carlos Gant M.D. on 11/12/2019 at 13:33
== END ==
LOC: MRI 17:46
PROVIDERS: PCP Family Medicine; Referring Provider Physician Assistant Medical; Visit Provider Physician Assistant Medical
DX: S43.005A Unspecified dislocation of left shoulder joint, initial encounter (principal); X58.XXXA Exposure to other specified factors, initial encounter
CPT/HCPCS: 73221

== ENCOUNTER → 2020-01-18 16:35 | Outpatient (CLI) | payer OTHER, SELFPAY ==
[2020-01-18 18:44] LABS: Add Manual Diff / Slide Review NO; Basophils Absolute Auto 0 /uL (0-100); Basophils Percent Auto 0.4 % (0-2); Eosinophils Absolute Auto 100 /uL (0-450); Eosinophils Percent Auto 0.6 % (2-4); Hematocrit 39.5 % (36-46); Hemoglobin 13.1 g/dL (12.0-16.0); Lymphocytes Absolute Auto 1700 /uL (1100-4500); Lymphocytes Percent Auto 15.6 % (25-40); Mean Corpuscular HGB Conc 33.2 % (30-36); Mean Corpuscular Hemoglobin 26.9 PG (26-34); Mean Corpuscular Volume 81.2 fL (80-100); Monocytes Absolute Auto 700 /uL (0-900); Monocytes Percent Auto 6.7 % (3-14); Neutrophils Absolute Auto 8400 /uL (1500-7000); Neutrophils Percent Auto 76.7 % (50-75); Platelet Count 193 X10^3/uL (150-400); Red Blood Cell Count 4.86 X10^6/uL (4.0-5.2); Red Cell Distribution Width 17.9 % (11.6-14.8); White Blood Cell Count 10.9 X10^3/uL (4.5-11.0)
[2020-01-18 18:56] LABS: Appearance Urine UA CLEAR; Bilirubin Urine UA NEGATIVE (NEGATIVE); Color Urine UA YELLOW; Glucose Urine UA NEGATIVE (Negative); Ketones Urine UA TRACE (NEGATIVE); Leukocyte Esterase Urine UA TRACE (NEGATIVE); Nitrite Urine UA NEGATIVE (Negative); Occult Blood Urine UA TRACE-LYSED (Negative); Protein Urine UA NEGATIVE (Negative); Urobilinogen Urine UA 0.2 E.U./dL (0.2)
[2020-01-18 19:17] LABS: pH Urine UA 5.5 (4.5-8.0)
[2020-01-18 19:19] LABS: RBC Urine 1-5/HPF (0-5/HPF); Squamous Epithelial Cell Urine 1-5 /HPF (0-5/HPF); WBC Urine 1-5/HPF (0-5/HPF)
[2020-01-18 19:20] LABS: Amorphous Sediment Urine 1+; Bacteria Urine Few (2-10); Culture Indicated Urine Cult Not Indicated; Mucus Urine 1+ (Negative); Urine Comments CX ALREADY ORDERED
[2020-01-19 06:11] LABS: RPR Screen Non Reactive (Non Reactive)
[2020-01-19 08:19] LABS: Hepatitis B Surface Antigen NEGATIVE s/c (NEGATIVE)
[2020-01-19 08:32] LABS: Hep C Virus Ab w/Reflex Quant NEGATIVE s/c (NEGATIVE)
[2020-01-19 09:08] LABS: Varicella IgG Antibody 1886 index (Immune >165)
== END ==
PROVIDERS: PCP Physician Assistant Medical; Referring Provider Obstetrics & Gynecology; Visit Provider Obstetrics & Gynecology
DX: Z34.01 Encounter for supervision of normal first pregnancy, first trimester (principal)
CPT/HCPCS: 36415; 80055; 81003; 81015; 86787; 86803; 86850; 86900; 86901; 87086

== ENCOUNTER 2020-02-08 02:02 | Emergency (ER) | payer OTHER, SELFPAY ==
[2020-02-08 02:15] VITALS: BP 136/65; PULSE 88; RESP 18; TEMP 37.3; O2SAT 95; BMI 38.0
--- NOTE | 2020-02-08 02:56 | DI.US.S_ITS ---
PROCEDURE: US OB <= 14 WEEKS FETUS INDICATIONS: HEAVY BLEEDING, CRAMPING OUTSIDE/PRIOR DATING DATA: . Last menstrual period (LMP): 11/20/2019 . LMP-based estimated date of delivery (CORINNA): 08/26/2020 . First dating scan (date and location): 01/18/2020 . Estimated date of delivery (CORINNA) from first dating scan: 08/26/2020 . TECHNIQUE: Real-time scanning was performed of the fetus and maternal pelvic organs, with image documentation. Endovaginal scanning was also performed to better visualize the fetus and maternal ovaries. COMPARISON: [facility], , OB <= 14 WEEKS FETUS, 01/18/2020, 16:24. FINDINGS: Embryo: Single live intrauterine is identified with crown-rump length measuring 4.7 cm, corresponding to ultrasound gestational age of 11 weeks 3 days. heart rate is identified at 158 beats per minute. Gestational sac is mildly heterogenous in appearance. Measurement variability in dating: +/- 4 weeks by LMP, +/- 7 days by mean sac diameter (use before 6 weeks gestation if crown-rump length not able to be measured), +/- 5 days by crown-rump length (up to 8 weeks 6 days gestation), +/- 7 days by crown-rump length (up to 13 weeks 6 days gestation). Maternal organs: Ovaries is unremarkable. Limited images through the kidneys demonstrate no hydronephrosis. IMPRESSION: 1. Single live intrauterine with ultrasound gestational age of 11 weeks 3 days corresponding to ultrasound CORINNA of 08/26/2020. 2. No definitive fluid collection is identified. Mild heterogeneous of the gestational sac is noted. As clinically indicated, short interval imaging follow-up is recommended. The above findings are concordant with preliminary report. Dictated by: Li Skaggs M.D. on 02/08/2020 at 8:46 Approved by: Li Skaggs M.D. on 02/08/2020 at 9:19
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
[2020-02-08 03:11] LABS: Add Manual Diff / Slide Review NO; Basophils Absolute Auto 0 /uL (0-100); Basophils Percent Auto 0.3 % (0-2); Eosinophils Absolute Auto 100 /uL (0-450); Eosinophils Percent Auto 1.1 % (2-4); Lymphocytes Absolute Auto 1700 /uL (1100-4500); Lymphocytes Percent Auto 14.7 % (25-40); Mean Corpuscular HGB Conc 33.3 % (30-36); Mean Corpuscular Hemoglobin 27.1 PG (26-34); Mean Corpuscular Volume 81.5 fL (80-100); Monocytes Absolute Auto 900 /uL (0-900); Monocytes Percent Auto 7.6 % (3-14); Neutrophils Absolute Auto 8700 /uL (1500-7000); Neutrophils Percent Auto 76.3 % (50-75); Platelet Count 166 X10^3/uL (150-400); Red Blood Cell Count 4.79 X10^6/uL (4.0-5.2); Red Cell Distribution Width 17.5 % (11.6-14.8); White Blood Cell Count 11.4 X10^3/uL (4.5-11.0)
[2020-02-08 03:20] LABS: Prothrombin Time 11.2 SECONDS (10.1-12.7)
[2020-02-08 03:23] LABS: PTT Partial Thromboplastin Tim 36 SECONDS (26.4-36.2)
[2020-02-08 03:24] LABS: Alanine Aminotransferase 44 IU/L (<35); Albumin 3.9 g/dL (3.5-5.0); Albumin Globulin Ratio 1.1 (1.0-2.8); Alkaline Phosphatase 85 U/L (38-126); Aspartate Aminotransferase 31 IU/L (14-36); Bilirubin Total 0.4 mg/dL (0.2-1.3); Blood Urea Nitrogen 8 mg/dL (7-17); Calcium 9.3 mg/dL (8.4-10.2); Carbon Dioxide 23 mmol/L (22-32); Chloride 106 mmol/L (98-107); Estimated Glomerular Filt Rate > 60.0 mL/min (>60); Globulin 3.6 g/dL (1.7-4.1); Glucose 102 mg/dL (70-100); HEMOLYSIS 33 (0-50); Sodium 135 mmol/L (137-145); Total Protein 7.5 g/dL (6.3-8.2)
[2020-02-08 04:06] LABS: HCG Quantitative /Beta subunit 65156 mIU/mL
[2020-02-08 04:26] VITALS: BP 110/67; PULSE 92; RESP 16; O2SAT 99
[2020-02-08 04:31] LABS: Urine N gonorrhoeae NOT DETECTED
[2020-02-08 04:41] LABS: Urine Chlamydia NOT DETECTED
== END 2020-02-08 04:45 | disposition home or self-care (01) ==
PROVIDERS: Emergency Provider Emergency Medicine; PCP Physician Assistant Medical
DX: O20.0 Threatened abortion (principal); Z3A.11 11 weeks gestation of pregnancy
CPT/HCPCS: 36415; 76801; 76817; 80053; 84702; 85025; 85610; 85730; 86900; 86901; 87210; 87491; 87591; 99284

== ENCOUNTER 2020-02-11 10:06 | Observation (INO) | payer OTHER, SELFPAY ==
[2020-02-11] VITALS (13 sets, daily range): BP systolic 94–126; BP diastolic 58–78; PULSE 70–103; RESP 11–19; TEMP 35.9–36.8; O2SAT 98–100; BMI 38.4; BMI 38.2
--- NOTE | 2020-02-11 | PATH_ITS ---
[facility] Accession Number: [id number] . 01 Material submitted: . product of conception - PRODUCTS OF CONCEPTION . 01 Clinical history: . SAYS SHE IS HAVING A PATIAL MISCARRIAGE . 02 Diagnosis: Product of Conception: Products of conception identified. Immunohistochemistry studies pending for further characterization; results will be reported as an addendum. MRV 02/14/2020 1716 Local . 02 Electronically signed: . Юлия Zhong MD, Pathologist NPI- [id number] . 01 Gross description: . Received in formalin, labeled with the patient's name, MRN and products of conception, is a 207 gram, 11.5 x 11.0 x 3.8 cm aggregate of rao-pink spongy and membranous tissue admixed with blood clot elements. No parts are identified. Telemetry Nurse sections are submitted in cassettes A1-A2. ([id number]) /MRV 02/13/2020 2323 Local . 02 Pathologist provided ICD-10: O02.1 . 02 CPT . 049815, [id number] Performed at: 01 [facility] [address], [place], [place] [id number] MD Carlos Olivas MD Phone: [phone] Performed at: 02 [facility] [address] [place], [place] [id number] MD Ada Mock MD Phone: [phone]
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
--- NOTE | 2020-02-11 11:00 | DI.US.S_ITS ---
PROCEDURE: US PELVIC COMPLETE INDICATIONS: INCOMPLETE SAB; POSSIBLE RPOC TECHNIQUE: Real-time scanning was performed of the pelvic organs, with image documentation. Additional endovaginal scanning was necessary due to incomplete visualization of the adnexal and endometrial structures by transabdominal scanning. COMPARISON: [facility], US, US OB <= 14 WEEKS FETUS, 02/08/2020, 15:35. FINDINGS: Transabdominal scanning: No pathologic free abdominal or pelvic fluid. Endovaginal scanning: Uterus: Uterus is normal in size at 12.7 x 8 x 9.8 centimeters cm. The endometrial stripe is abnormally thickened at 4.8 centimeters. There is hypervascular material seen within the endometrial stripe. Ovaries: The right ovary is not seen. The left ovary measures 4.6 x 2.9 x 3.3 centimeters. There is a 2.8 centimeter cyst within it, which may represent a corpus luteum. IMPRESSION: Retained products of conception of till proven otherwise. Dictated by: Stephen Galicia M.D. on 02/11/2020 at 11:02 Approved by: Stephen Galicia M.D. on 02/11/2020 at 11:05
[2020-02-11] MEDS: SODIUM CHLORIDE 0.9% 1,000 ML 1000 ML IV (11:50)
[2020-02-11] MEDS: KETOROLAC 60 MG/2 ML VIAL 15 MG IV (11:50)
[2020-02-11 11:56] LABS: Add Manual Diff / Slide Review NO; Basophils Absolute Auto 0 /uL (0-100); Basophils Percent Auto 0.5 % (0-2); Eosinophils Absolute Auto 0 /uL (0-450); Eosinophils Percent Auto 0.3 % (2-4); Hematocrit 36.8 % (36-46); Hemoglobin 12.4 g/dL (12.0-16.0); Lymphocytes Absolute Auto 1300 /uL (1100-4500); Lymphocytes Percent Auto 12.9 % (25-40); Mean Corpuscular HGB Conc 33.5 % (30-36); Mean Corpuscular Hemoglobin 27.1 PG (26-34); Mean Corpuscular Volume 80.9 fL (80-100); Monocytes Absolute Auto 800 /uL (0-900); Monocytes Percent Auto 8.6 % (3-14); Neutrophils Absolute Auto 7500 /uL (1500-7000); Neutrophils Percent Auto 77.7 % (50-75); Platelet Count 145 X10^3/uL (150-400); Red Blood Cell Count 4.56 X10^6/uL (4.0-5.2); Red Cell Distribution Width 17.3 % (11.6-14.8); White Blood Cell Count 9.7 X10^3/uL (4.5-11.0)
[2020-02-11 12:05] LABS: Alanine Aminotransferase 48 IU/L (<35); Albumin Globulin Ratio 1.1 (1.0-2.8); Alkaline Phosphatase 104 U/L (38-126); Aspartate Aminotransferase 38 IU/L (14-36); Bilirubin Total 0.4 mg/dL (0.2-1.3); Blood Urea Nitrogen 7 mg/dL (7-17); Calcium 9.1 mg/dL (8.4-10.2); Carbon Dioxide 27 mmol/L (22-32); Chloride 102 mmol/L (98-107); Estimated Glomerular Filt Rate > 60.0 mL/min (>60); Globulin 3.6 g/dL (1.7-4.1); Glucose 93 mg/dL (70-100); HEMOLYSIS < 15 (0-50); Potassium 3.8 mmol/L (3.4-5.1); Sodium 135 mmol/L (137-145); Total Protein 7.6 g/dL (6.3-8.2)
--- NOTE | 2020-02-11 12:24 | PM.PREOP ---
Pre-operative Note COVID-19 COVID-19 status: Negative Result date/Date tested (Pos, Neg/Pending): 02/08/20 Interval Note History & Physical reviewed/Exam performed by Physician: Yes Changes to H&P: No H&P completed within 30 days and has changed as indicated here:: 02/11/20
[2020-02-11 14:09] LABS: COVID19 -Nasal RAPID Negative (Negative)
--- NOTE | 2020-02-11 14:30 | PM.PREOP ---
Pre-operative Note COVID-19 COVID-19 status: Negative Result date/Date tested (Pos, Neg/Pending): 02/11/20 Interval Note History & Physical reviewed/Exam performed by Physician: Yes Changes to H&P: No H&P completed within 30 days and has changed as indicated here:: 02/11/20
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
[2020-02-11] MEDS: LACTATED RINGERS 1,000 ML 42 ML IV ×2 (14:43→16:44)
--- NOTE | 2020-02-11 15:21 | SUR.OPER ---
Lithotomy on padded OR bed, head on pillow, arms secured on padded arm boards at <90 degrees abduction. Legs secured in padded yellow fins stirrups.
[2020-02-11] MEDS: miSOPROStoL 200 MCG TABLET 800 MCG PR (15:31)
[2020-02-11] MEDS: fentaNYL 100 MCG/2 ML INJ IV ×2 (15:54→16:00)
[2020-02-11 16:01] LABS: Hematocrit 32.6 % (36-46)
[2020-02-11] MEDS: OXYCODONE/ACETAMINOPHEN 5/325 TABLET 1 TAB PO ×2 (16:41→18:29)
--- NOTE | 2020-02-11 16:53 | SUR.PHASEII ---
1640 Dr Da Silva notified that the patient is in phase II recovery. She wants the patient to stay here for another hour. will see patient prior to DC. Pt denies nausea, pain 4/10, small amount vag bleeding. Boyfriend at bedside. 3033 Meal ordered
--- NOTE | 2020-02-11 17:11 | SUR.PHASEII ---
Meal given. When questioned about the pain, she states that I feel it, but I don't. Gave it 'maybe a 2' when asked for a number. Pleasant, on phone, visiting with boyfriend.
--- NOTE | 2020-02-11 17:21 | SUR.PHASEII ---
Hand off to Morena Mendez RN
--- NOTE | 2020-02-11 17:45 | PM.GYNOP.1 ---
Operative Date/Time/Diagnoses Date of procedure: 02/11/20 Time of procedure: 15:45 Pre-op diagnosis: Retained products of conception Incomplete Miscarriage Post-op diagnosis: same Procedure & Clinicians Procedure: Procedures Operation Date: 02/11/20 14:15 Actual Procedures Side Surgeon p suction Dilation and Curettage Not Applicable Adriana Da Silva MD Indications: Retained products of conception Incomplete miscarriage Surgeon: Adriana Da Silva Anesthesia Type: General (LMA) and Other Operative Notes Findings: Twelve week size anteverted uterus Large amount of placenta, amniotic fluid, and blood in the uterus Closure Type: not applicable Specimen(s): other (Products conception) Estimated blood loss (mL): 800 Blood products transfused: none Procedure in detail: After informed consent was obtained, the patient was taken to the operating room where she was placed in the dorsal supine position. After adequate LMA general anesthesia was achieved, she was placed in the dorsal lithotomy position, and prepped and draped in the usual sterile fashion. A bivalve speculum was placed into the vagina and the anterior lip of the cervix grasped with a single-tooth tenaculum. Cervical os was dilated to the # 12 Hegar dilator. The # 12 curved plastic curette passed easily into the endometrial cavity. Several passes with suction revealed a large amount of placental tissue and amniotic fluid as well as blood. When the catheter was removed, there was a large gush of fluid from the cervical os. Pitocin was given in the IV fluids as well as an IM injection. The bivalve speculum and single-tooth tenaculum were removed. Massage was performed until the uterus clamped down. The bivalve speculum was placed back into the vagina and a single-tooth tenaculum placed on the anterior lip of the cervix. Several more passes with suction revealed blood only. Suction tip was changed to the # 8 plastic curette. Several passes revealed blood only. There was another large gush of from the cervical os. The single-tooth tenaculum and bivalve speculum were removed from the vagina. Massage was performed until the uterus clamped down a 2nd time. Six hundred micro g of Cytotec were placed rectally. The bivalve speculum was placed back into the vagina. There was minimal amount of bleeding from the cervical os. The bivalve speculum was removed from the vagina. Sponge, lap, and instrument counts were correct x2. The patient tolerated the procedure well, and was taken to PACU in stable condition. An H&H and type and screen were sent from the operating room. Complications: none Post-operative Condition: stable Disposition: PACU Plan for aftercare: Home after prolonged recovery
[2020-02-11] MEDS: KETOROLAC 30 MG/ML VIAL IV (18:26)
--- NOTE | 2020-02-11 18:34 | SUR.PHASEII ---
Dr. Da Silva came back to check on patient. States patient may now discharge home per orders. Vital signs stable.
== END 2020-02-11 18:36 | disposition home or self-care (01) ==
LOC: ED 12:19 → AC 13:41
PROVIDERS: Anesthesiology; Admitting Provider Obstetrics & Gynecology; Emergency Provider Emergency Medicine; PCP Physician Assistant Medical; Referring Provider Obstetrics & Gynecology; Visit Provider Obstetrics & Gynecology
PROC: (CPT 58120; principal; 2020-02-11 14:15)
DX: O02.1 Missed abortion (principal); Z3A.12 12 weeks gestation of pregnancy; J45.909 Unspecified asthma, uncomplicated; Z11.59 Encounter for screening for other viral diseases
CPT/HCPCS: 59812; 36415; 76830; 76856; 80053; 85014; 85018; 85025; 86850; 86900; 86901; 87635; 96361; 96374; 96375; 96376; 99284; G0378; J1100; J1885; J2250; J2405; J2590; J2704; J3010; S0191